=== PATIENT | female | born 1965 | race African-American/Black ===

== ENCOUNTER 2018-11-01 13:04 | Emergency (ER) | payer OTHER ==
[2018-11-01 13:10] VITALS: BP 151/82; PULSE 71; TEMP 98; BMI 27.3
--- NOTE | 2018-11-01 15:33 | PDOC ---
History of Present Illness - General Chief Complaint: Hematuria Stated Complaint: PT. HERE FOR BLOOD IN URINE X 1 DAY Time Seen by Provider: 11/01/18 15:03 History Source: Patient Exam Limitations: No Limitations - History of Present Illness Travel History: No Initial Comments: 11/01/18 15:21 HISTORY OF PRESENT ILLNESS: 52-year-old woman past medical history of hypertension and fibroids who presents emergency department for evaluation of lower abdominal "strange sensation" and blood while voiding. 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 She reports her last menstrual period was more than 7 years ago. Patient was seen by her combination welder after [place] 10/25 was given a prescription for MRI of the pelvis. Patient attempted to call for an appointment but was unable to secure an appointment for an MRI. No recent travel or sick contacts. PAST MEDICAL HISTORY: see HPI SURGICAL HISTORY: Denies ALLERGIES: No known drug allergies REVIEW OF SYSTEMS General/Constitutional: Denies fever or chills. Denies weakness, weight change. HEENT: Denies change in vision. Denies ear pain or discharge. Denies sore throat. Cardiovascular: Denies chest pain or shortness of breath. Respiratory: Denies cough, wheezing, or hemoptysis. Gastrointestinal: Denies nausea, vomiting, diarrhea or constipation. Denies rectal bleeding. Genitourinary: see HPI Musculoskeletal: Denies joint or muscle swelling or pain. Denies neck or back pain. Skin and breasts: Denies rash or easy bruising. Neurologic: Denies headache, vertigo, loss of consciousness, or loss of sensation. Psychiatric: Denies depression or anxiety. Endocrine: Denies increased thirst. Denies abnormal weight change. Hematologic/Lymphatic: Denies anemia, easy bleeding, or history of blood clots. Allergic/Immunologic: Denies hives or skin allergy. Denies latex allergy. PHYSICAL EXAM General Appearance: Well-appearing, appropriately dressed. No apparent distress , no intoxication.. Respiratory/Chest: Lungs CTAB. No shortness of breath, chest tenderness, respiratory distress, accessory muscle use. No crackles, rales, rhonchi, stridor , wheezing, dullness Cardiovascular: RRR. S1, S2. No JVD, murmur, bradycardia, tachycardia. Vascular Pulses: Dorsalis-Pedis (R): 2+, Dorsalis-Pedis (L): 2+ Gastrointestinal/Abdominal: Normal bowel sounds. Abdomen soft, non-distended. Suprapubic tenderness noted. No guarding present. No organomegaly. No pulsatile masses. No hernia. Lymphatic: No adenopathy, tenderness. Musculoskeletal/Extremities: Normal inspection. FROM of all extremities, normal capillary refill. Pelvis Stable. No CVA tenderness. No tenderness to extremities, pedal edema, swelling, erythema or deformity. Integumentary: Appropriate color, dry, warm. No cyanosis, erythema, jaundice or rash Neurologic: strike plate attacher II-XII intact. Fully oriented, alert. Appropriate mood/affect. Motor strength 5/5. No appreciable EOM palsy, facial droop or sensory deficit. Past History - Past Medical History Allergies/Adverse Reactions: Allergies Allergy/AdvReac Type Severity Reaction Status Date / Time No Known Allergies Allergy Verified 11/01/18 13:06 Home Medications: Ambulatory Orders Amlodipine Besylate [Norvasc -] 10 mg PO DAILY 07/18/16 Aspirin [ASA -] 81 mg PO DAILY 07/18/16 Losartan Potassium [Cozaar -] 50 mg PO DAILY 07/18/16 Cephalexin Monohydrate [Keflex -] 500 mg PO BID #14 capsule 11/01/18 COPD: No HTN: Yes - Family Disease History Family Disease History: Heart Disease: Father - Immunization History Immunization Up to Date: Yes - Suicide/Smoking/Psychosocial Hx Smoking Status: No Smoking History: Never smoked Number of Cigarettes Smoked Daily: 0 Hx Alcohol Use: No Drug/Substance Use Hx: No Substance Use Type: None Abd/GI Specific PMHX - Complaint Specific PMHX Diverticulitis: No *Physical Exam - Vital Signs Last Vital Signs Temp Pulse Resp BP Pulse Ox 98.0 F 71 20 151/82 99 11/01/18 13:06 11/01/18 13:06 11/01/18 13:06 11/01/18 13:06 11/01/18 13:06 - Physical Exam Comments:: 11/01/18 17:16 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 Female Pelvic Exam: positive: normal external exam, cervical os closed, normal adnexa, normal size ovaries. negative: CMT, discharge, adnexal tenderness, vaginal bleeding ED Treatment Course - LABORATORY CBC & Chemistry Diagram: 11/01/18 15:19 11/01/18 15:17 - RADIOLOGY Radiology Studies Ordered: Category Date Time Status PELVIC / BLADDER US [US] Stat Ultrasound 11/01/18 15:15 Ordered Medical Decision Making - Medical Decision Making 11/01/18 15:33 A/P: 52-year-old woman with suprapubic pain and hematuria Differential diagnosis includes but is not limited to: new endometrial bleeding , infection, malignancy Basic labs Urinalysis with culture Pelvic ultrasound Reassess 11/01/18 17:14 Ultrasound as read by Dr. Brandt: Uterine leiomyomas. Endometrial thickness measuring 0.2 cm. Urinalysis notable for 2+ protein, 3+ blood, 3+ leuk esterase with RBCs 692 and WBCs 261. As there is no blood noted in the vaginal vault I will treat the patient for cystitis with Keflex 500 mg twice a day for the next 7 days. I discussed the physical exam findings, ancillary test results and final diagnoses with the patient. I answered all of the patient's questions. The patient was satisfied with the care received and felt comfortable with the discharge plan and treatment plan. The patient will call their primary care physician within 24 hours to arrange follow-up and will return to the Emergency Department with any new, persistent or worsening symptoms. *DC/Admit/Observation/Transfer Diagnosis at time of Disposition: Cystitis Uterine fibroid Qualifiers: Uterine leiomyoma location: unspecified location Qualified Code(s): D25.9 - Leiomyoma of uterus, unspecified - Discharge Dispostion Disposition: HOME Condition at time of disposition: Fair Decision to Admit order: No - Prescriptions Prescriptions: Cephalexin Monohydrate [Keflex -] 500 mg PO BID #14 capsule - Referrals Referrals: James Bolton MD [Primary Care Provider] - - Patient Instructions Additional Instructions: Rest, drink lots of fluids: Teas, water, soups, Pedialyte Saltwater gargles Steamy showers/seem to face break up mucus Avoid contact with others until fevers and cough resolved Lots of handwashing and good hygiene Continue [id number] medications for symptomatic relief Tylenol or Motrin for fever and pain Followup with private physician in one to 2 days as needed Return to emergency department for worsened symptoms, fevers, dehydration El descanso, beber muchos lquidos: ts, agua, sopas, Pedialyte grgaras de agua salada Duchas Steamy / parecen enfrentar aflojar la mucosidad Evite el contacto con otras personas hasta que la fiebre y la tos resueltos Un montn de lavado de ashu y la higiene Continuar [id number] medicamentos para el alivio sintomtico Tylenol o Motrin para la fiebre y el dolor Followup con el mdico privado en lucie o 2 farr segn sea necesario Regresar a urgencias por sntomas empeoraron, fiebres, deshidratacin - Post Discharge Activity Forms/Work/School Notes: Back to Work
[2018-11-01 15:38] LABS: EOS % 1.1 % (0-4.5); HEMATOCRIT 42.9 % (32.4-45.2); HEMOGLOBIN 14.9 GM/dL (10.7-15.3); LYMPH % 16.9 % (8-40); MCH 31.6 pg (25.7-33.7); MCHC 34.7 g/dl (32.0-36.0); MEAN CELL VOLUME 91.3 fl (80-96); MEAN PLT VOLUME 9.3 fl (7.5-11.1); MONO % 8.4 % (3.8-10.2); NEUT % 72.6 % (42.8-82.8); PLATELET COUNT 228 K/MM3 (134-434); RBC 4.71 M/mm3 (3.60-5.2); RDW 13.3 % (11.6-15.6); WHITE BLOOD COUNT 9.6 K/mm3 (4.0-10.0)
[2018-11-01 15:58] LABS: PROTHROMBIN TIME (PATIENT) 11.8 SEC (9.7-13.0)
[2018-11-01 16:03] LABS: EPI CELLS 0.5 /HPF (0-5); PH,URINE 5.5 (5.0-8.0); URINE APPEARANCE CLOUDY; URINE BACTERIA 18.954 /hpf (NEGATIVE); URINE BILIRUBIN NEGATIVE (NEGATIVE); URINE CASTS 2 /hpf (0-8); URINE COLOR RED; URINE GLUCOSE (UA) NEGATIVE (NEGATIVE); URINE KETONE NEGATIVE (NEGATIVE); URINE LEUK ESTERASE 3+ (NEGATIVE); URINE NITRITE NEGATIVE (NEGATIVE); URINE PROTEIN 2+ (NEGATIVE); URINE RBC 692 /hpf (0-4); URINE UROBILINOGEN 0.2 mg/dL (0.2-1.0); URINE WBC 261 /hpf (0-5)
[2018-11-01 16:12] LABS: ALBUMIN 4.3 g/dl (3.4-5.0); ALK PHOS 74 U/L (45-117); ANION GAP 7 MMOL/L (8-16); BILIRUBIN,TOTAL 0.4 mg/dL (0.2-1); BLOOD UREA NITROGEN 16 mg/dL (7-18); CALCIUM 9.4 mg/dL (8.5-10.1); CHLORIDE 103 mmol/L (98-107); CO2 29 mmol/L (21-32); CREATININE 0.7 mg/dL (0.55-1.3); GLUCOSE,RANDOM 115 mg/dL (74-106); POTASSIUM 3.3 mmol/L (3.5-5.1); SGOT/AST 18 U/L (15-37); SGPT/ALT 23 U/L (13-61); SODIUM 139 mmol/L (136-145); TOT PROT 7.5 g/dl (6.4-8.2)
== END 2018-11-01 17:39 | disposition home or self-care (01) ==
LOC: JER 13:04
DX: N30.01 Acute cystitis with hematuria (principal); D25.9 Leiomyoma of uterus, unspecified; I10 Essential (primary) hypertension
CPT/HCPCS: 36415; 76830-TC; 80053; 81003; 85025; 85610; 86850; 86900; 86901; 87070; 87086; 87186; 87205; 99282-25

== ENCOUNTER 2021-01-20 12:15 | Emergency (ER) | payer OTHER ==
[2021-01-20 12:29] VITALS: BP 169/85; PULSE 95; TEMP 97.9; BMI 29.2
[2021-01-20] MEDS ORDERED: LIDOCAINE 5% TOPICAL PATCH TP ONE (12:58)
[2021-01-20] MEDS ORDERED: METHOCARBAMOL 500 MG TABLET PO ONE (12:58)
[2021-01-20] MEDS ORDERED: KETOROLAC TROMETHAMINE 30 MG/1 ML VIAL IM ONE (12:58)
[2021-01-20] MEDS ORDERED: LIDOCAINE 5% TOPICAL PATCH ONE (13:16)
[2021-01-20] MEDS ORDERED: KETOROLAC TROMETHAMINE 30 MG/1 ML VIAL ONE (13:17)
[2021-01-20] MEDS ORDERED: METHOCARBAMOL 500 MG TABLET ONE (13:17)
== END 2021-01-20 14:40 | disposition home or self-care (01) ==
LOC: JERFT 12:15
DX: M54.31 Sciatica, right side (principal)
CPT/HCPCS: 72100-TC-FY; 93971-TC; 99284-25

== ENCOUNTER 2021-08-12 13:46 | Emergency (ER) | payer OTHER ==
[2021-08-12 14:29] VITALS: BP 155/87; PULSE 76; TEMP 97.6
[2021-08-12] MEDS ORDERED: ACETAMINOPHEN 500 MG TABLET (FP) PO ONE (14:44)
[2021-08-12] MEDS ORDERED: ACETAMINOPHEN 500 MG TABLET (FP) ONE (14:46)
[2021-08-12 15:39] LABS: CALCIUM 9.2 mg/dL (8.5-10.1)
[2021-08-12 15:40] LABS: BLOOD UREA NITROGEN 21.6 mg/dL (7-18)
[2021-08-12 15:43] LABS: CREATININE 1.3 mg/dL (0.55-1.3)
[2021-08-12 15:44] LABS: PHOSPHOROUS 3.5 mg/dL (2.5-4.9)
== END 2021-08-12 15:54 | disposition home or self-care (01) ==
LOC: JERFT 13:46
DX: M71.22 Synovial cyst of popliteal space [Baker], left knee (principal); M79.604 Pain in right leg; M79.605 Pain in left leg
CPT/HCPCS: 36415; 80048; 84100; 93970-TC; 99284-25

== ENCOUNTER 2021-11-20 17:25 | Emergency (ER) | payer OTHER ==
[2021-11-20 17:36] VITALS: PULSE 77; TEMP 97.9; BMI 29.2
[2021-11-20] MEDS ORDERED: LIDOCAINE 5% TOPICAL PATCH TP ONE (17:58)
[2021-11-20] MEDS ORDERED: LIDOCAINE 5% TOPICAL PATCH ONE (18:09)
[2021-11-20 19:14] LABS: BASO % 0.8 % (0-2.0); EOS % 2.8 % (0-4.5); HEMATOCRIT 42.3 % (32.4-45.2); HEMOGLOBIN 13.8 GM/dL (10.7-15.3); LYMPH % 34.1 % (8-40); MCH 29.6 pg (25.7-33.7); MCHC 32.5 g/dl (32.0-36.0); MEAN CELL VOLUME 91.1 fl (80-96); MEAN PLT VOLUME 10.2 fl (7.5-11.1); MONO % 12.8 % (3.8-10.2); NEUT % 49.5 % (42.8-82.8); PLATELET COUNT 214 10^3/uL (134-434); RBC 4.64 M/mm3 (3.60-5.2); RDW 13.9 % (11.6-15.6); WHITE BLOOD COUNT 5.3 K/mm3 (4.0-10.0)
[2021-11-20 19:22] LABS: PROTHROMBIN TIME (PATIENT) 11.5 SEC (9.7-13.0)
[2021-11-20 19:24] LABS: BLOOD UREA NITROGEN 16.4 mg/dL (7-18); CALCIUM 9.1 mg/dL (8.5-10.1)
[2021-11-20 19:25] LABS: ACTIVATED PTT 29.4 SECONDS (25.2-36.5)
[2021-11-20 19:25] LABS: ALBUMIN 4.1 g/dl (3.4-5.0)
[2021-11-20 19:28] LABS: CREATININE 0.8 mg/dL (0.55-1.3)
[2021-11-20 19:29] LABS: BILIRUBIN,TOTAL 0.6 mg/dL (0.2-1); TOT PROT 7.2 g/dl (6.4-8.2)
[2021-11-20] MEDS ORDERED: HYDROCHLOROTHIAZIDE 25 MG TABLET (FP) PO ONE (21:48)
[2021-11-20] MEDS ORDERED: HYDROCHLOROTHIAZIDE 25 MG TABLET (FP) ONE (22:11)
[2021-11-20 22:25] VITALS: BP 195/112
[2021-11-21] MEDS ORDERED: LIDOCAINE PATCH REMOVAL MC SCH (06:00)
== END 2021-11-20 22:35 | disposition home or self-care (01) ==
LOC: JER 17:25
DX: I10 Essential (primary) hypertension (principal)
CPT/HCPCS: 36415; 71046-TC-FY; 80053; 84484; 85025; 85610; 85730; 93005; 93010; 99285-25

== ENCOUNTER 2022-02-17 17:37 | Emergency (ER) | payer OTHER ==
[2022-02-17 18:04] VITALS: BP 169/94; PULSE 75; TEMP 98.1
[2022-02-17 20:00] LABS: EPI CELLS 10 /uL (0-25.1); HYALINE CASTS 0 /uL (0-3.1); URINE APPEARANCE CLEAR; URINE BACTERIA 28 /uL (0-1359); URINE BILIRUBIN NEGATIVE (NEGATIVE); URINE COLOR YELLOW; URINE GLUCOSE (UA) NEGATIVE (NEGATIVE); URINE KETONE NEGATIVE (NEGATIVE); URINE LEUK ESTERASE 1+ (NEGATIVE); URINE NITRITE NEGATIVE (NEGATIVE); URINE PROTEIN NEGATIVE (NEGATIVE); URINE RBC 6 /uL (0-23.9); URINE UROBILINOGEN 0.2 mg/dL (0.2-1.0); URINE WBC 8 /uL (0-25.8)
== END 2022-02-17 21:07 | disposition home or self-care (01) ==
LOC: JER 17:37
DX: N30.91 Cystitis, unspecified with hematuria (principal)
CPT/HCPCS: 81003; 87086; 87186; 99283-25

== ENCOUNTER 2022-10-01 14:45 | Emergency (ER) | payer OTHER ==
[2022-10-01 15:00] VITALS: BP 153/99; PULSE 81; RESP 18; TEMP 98.1; BMI 29.2
== END 2022-10-01 17:29 | disposition home or self-care (01) ==
LOC: JER 14:45 → JERFT 14:45
DX: S40.012A Contusion of left shoulder, initial encounter (principal); W01.0XXA Fall on same level from slipping, tripping and stumbling without subsequent striking against object, initial encounter
CPT/HCPCS: 73030-TC-LT-FY; 99283-25

== ENCOUNTER 2023-04-22 10:44 | Emergency (ER) | payer OTHER ==
[2023-04-22 11:54] VITALS: BP 156/91; PULSE 78; RESP 17; TEMP 98.3; BMI 28.3
[2023-04-22 12:29] LABS: EPI CELLS 13 /uL (0-25.1); HYALINE CASTS 0 /uL (0-3.1); PH,URINE 8.5 (5.0-8.0); URINE APPEARANCE CLEAR; URINE BACTERIA 97 /uL (0-1359); URINE BILIRUBIN NEGATIVE (NEGATIVE); URINE COLOR YELLOW; URINE GLUCOSE (UA) NEGATIVE (NEGATIVE); URINE KETONE NEGATIVE (NEGATIVE); URINE LEUK ESTERASE 1+ (NEGATIVE); URINE NITRITE NEGATIVE (NEGATIVE); URINE PROTEIN NEGATIVE (NEGATIVE); URINE RBC 59 /uL (0-23.9); URINE UROBILINOGEN 0.2 mg/dL (0.2-1.0); URINE WBC 101 /uL (0-25.8)
[2023-04-22] MEDS ORDERED: SULFAMETHOXAZOLE/TRIMETHOPRIM 800MG/160MG D.S. TABLET PO ONE (12:45)
[2023-04-22] MEDS ORDERED: SULFAMETHOXAZOLE/TRIMETHOPRIM 800MG/160MG D.S. TABLET ONE (12:57)
== END 2023-04-22 13:04 | disposition home or self-care (01) ==
LOC: JER 10:44
DX: N30.91 Cystitis, unspecified with hematuria (principal)
CPT/HCPCS: 81003; 87086; 87186; 99283-25

== ENCOUNTER 2023-10-19 19:53 | Emergency (ER) | payer OTHER ==
[2023-10-19 19:58] VITALS: TEMP 97.9; BMI 28.7
[2023-10-19 21:30] LABS: EPI CELLS 0 /uL (0-25.1); HYALINE CASTS 0 /uL (0-3.1); URINE APPEARANCE CLEAR; URINE BACTERIA 3 /uL (0-1359); URINE BILIRUBIN NEGATIVE (NEGATIVE); URINE COLOR YELLOW; URINE GLUCOSE (UA) NEGATIVE (NEGATIVE); URINE KETONE NEGATIVE (NEGATIVE); URINE LEUK ESTERASE TRACE (NEGATIVE); URINE NITRITE NEGATIVE (NEGATIVE); URINE PROTEIN NEGATIVE (NEGATIVE); URINE RBC 8 /uL (0-23.9); URINE UROBILINOGEN 0.2 mg/dL (0.2-1.0); URINE WBC 1 /uL (0-25.8)
[2023-10-19 23:20] VITALS: BP 168/96; PULSE 72; RESP 19
== END 2023-10-19 23:34 | disposition home or self-care (01) ==
LOC: JER 19:53
DX: I10 Essential (primary) hypertension (principal)
CPT/HCPCS: 81003; 87086; 93005; 93010; 99284-25